=== PATIENT | female | born 1995 | race Two or more races ===

== ENCOUNTER 2024-01-07 19:46 | Emergency (ER) | payer MEDICAID, OTHER ==
[~2024-01-07] VITALS: Ht 152.4 cm; Wt 44.1 kg
[2024-01-07 20:47] VITALS: BP 111/74; PULSE 102; RESP 16; TEMP 99
[2024-01-07] MEDS: PANTOPRAZOLE 40 MG TAB PO ONE (22:03)
[2024-01-07 22:08] VITALS: O2SAT 98
[2024-01-07] MEDS ORDERED: OMEP-335 PO (22:16)
== END 2024-01-07 22:30 | disposition home or self-care (01) ==
LOC: ER 19:46
DX: K21.9 Gastro-esophageal reflux disease without esophagitis (principal); J45.909 Unspecified asthma, uncomplicated